=== PATIENT | male | born 1980 | race Caucasian/White ===

== ENCOUNTER 2022-05-16 18:22 | Emergency (ER) | payer BC ==
[2022-05-16] MEDS ORDERED: Lidocaine 1% 10 ML MDV ONE (20:33)
== END 2022-05-16 21:00 ==
LOC: JD.ED 18:22
DX: S61.215A Laceration without foreign body of left ring finger without damage to nail, initial encounter (principal); W23.1XXA Caught, crushed, jammed, or pinched between stationary objects, initial encounter
CPT/HCPCS: 12001; 73130-26-LT; 73130-LT; 99282; 99283-25

== ENCOUNTER 2022-05-30 19:05 | Emergency (ER) | payer BC | END 2022-05-30 21:25 | disposition home or self-care (01) | LOC: JD.ED 19:05 | DX: R20.2 Paresthesia of skin (principal); F17.210 Nicotine dependence, cigarettes, uncomplicated; Z90.49 Acquired absence of other specified parts of digestive tract | CPT/HCPCS: 99283 ==